=== PATIENT | male | born 1985 | race Caucasian/White ===

== ENCOUNTER 2024-05-02 10:09 | Emergency (ER) | payer OTHER ==
[~2024-05-02] VITALS: Ht 172.7 cm; Wt 78.2 kg
[2024-05-02] MEDS ORDERED: IBUP-1454 PO (11:30)
[2024-05-02] MEDS ORDERED: AUG875T PO (11:30)
[2024-05-02 11:36] VITALS: BP 148/96; PULSE 65; RESP 18; TEMP 97.9; O2SAT 97
[2024-05-02] MEDS: AMPICILLIN & SULBACTAM SODIUM 3 GM in SODIUM CHL 0.9% 100 ML IV ONE (13:04)
== END 2024-05-02 13:52 | disposition home or self-care (01) ==
LOC: ER 10:09
DX: S61.250A Open bite of right index finger without damage to nail, initial encounter (principal); W64.XXXA Exposure to other animate mechanical forces, initial encounter; Y93.89 Activity, other specified; Y92.89 Other specified places as the place of occurrence of the external cause; Y99.8 Other external cause status
CPT/HCPCS: 73130; 96365

== ENCOUNTER 2024-08-02 11:10 | Emergency (ER) | payer OTHER ==
[~2024-08-02] VITALS: Ht 170.2 cm; Wt 74.7 kg
[~2024-08-02 11:10] MED LIST: AUG875T PO; IBUP-1454 PO
[2024-08-02 14:47] VITALS: BP 130/62; PULSE 128; RESP 18; TEMP 97.9; O2SAT 95
[2024-08-02] MEDS: KETOROLAC TROMETH 30 MG/ML 1ML VIAL IM ONE (14:54)
== END 2024-08-02 15:06 | disposition home or self-care (01) ==
LOC: ER 11:10
DX: R51.9 Headache, unspecified (principal); I10 Essential (primary) hypertension
CPT/HCPCS: 70450; 96372; 99285; J1885